=== PATIENT | female | born 1970 | race Caucasian/White ===

== ENCOUNTER 2017-10-12 18:46 | Inpatient (IN) | payer BC, OTHER ==
[~2017-10-12] VITALS: Ht 147.3 cm; Wt 88.5 kg
[~2017-10-12 18:46] MED LIST: BACLOFEN10 MG PO; CYMBALTA30 M1 PO; MEDROL4 MG PO; MOT800 PO; PEPCID20 MG PO; SYMBICORT1 AE3 INH; TRAMADOL HCL50 MG PO; WELLBUTRIN100 MG PO
[2017-10-12 19:48] LABS: BASOPHIL % 0.1 % (0-2); PLATELET COUNT 212 x10^3mcL (130-400); RED CELL DISTRIBUTION WIDTH 13.4 % (11.5-14.5)
[2017-10-12 20:05] LABS: CALCIUM 8.7 mg/dL (8.5-10.1); CARBON DIOXIDE 23.9 mmol/L (21-32); CREATININE SERUM 1.3 mg/dL (0.6-1.0); POTASSIUM SERUM 3.4 mmol/L (3.5-5.1)
[2017-10-12 20:10] LABS: ALBUMIN 3.8 g/dL (3.4-5.0); BILIRUBIN TOTAL 0.3 mg/dL (0.20-1.00); TOTAL PROTEIN, SERUM 7.3 g/dL (6.4-8.2)
[2017-10-12 21:10] VITALS: BP 118/53
[2017-10-12 21:17] LABS: CHOLESTEROL/HDL RATIO 3.9; MAGNESIUM 2.1 mg/dL (1.8-2.4); PHOSPHOROUS 2.5 mg/dL (2.5-4.9)
[2017-10-12] MEDS ORDERED: CYMBALTA30 M1 PO (21:22)
[2017-10-12 21:23] LABS: T3 TOTAL 0.95 ng/mL
[2017-10-12] MEDS ORDERED: NEU300 PO (21:24)
[2017-10-12 21:25] LABS: FREE T4 1.07 ng/dL (0.76-1.46); FREE THYROXINE INDEX 2.3 ug/dL (1.4-4.5)
[2017-10-12 22:13] VITALS: BP 102/54
[2017-10-13 03:52] LABS: microscopic required? NO
[2017-10-13 03:59] LABS: urine erythrocyte NEGATIVE (NEGATIVE)
[2017-10-13 04:18] LABS: AMPHETAMINE QUAL UR NONE DETECTED (NEG <=1000)
[2017-10-13 05:21] VITALS: BP 103/57
[2017-10-13 06:52] LABS: CALCIUM 8.2 mg/dL (8.5-10.1); CREATININE SERUM 1.1 mg/dL (0.6-1.0); MAGNESIUM 2.4 mg/dL (1.8-2.4); PHOSPHOROUS 2.3 mg/dL (2.5-4.9); POTASSIUM SERUM 4.4 mmol/L (3.5-5.1)
[2017-10-13 06:53] LABS: PLATELET COUNT 224 x10^3mcL (130-400); RED CELL DISTRIBUTION WIDTH 13.4 % (11.5-14.5)
[2017-10-13 08:01] LABS: BASOPHIL % 0 % (0-2)
[2017-10-13 16:59] VITALS: BP 111/66
[2017-10-13 21:42] VITALS: BP 105/62
[2017-10-14 05:24] VITALS: BP 128/63
[2017-10-14 06:56] LABS: CALCIUM 8.6 mg/dL (8.5-10.1); CARBON DIOXIDE 21.8 mmol/L (21-32); CHLORIDE SERUM 109 mmol/L (98-107); CREATININE SERUM 0.8 mg/dL (0.6-1.0); GFR1 > 60 mL/min; GLUCOSE SERUM 156 mg/dL (74-106); MAGNESIUM 2.5 mg/dL (1.8-2.4); POTASSIUM SERUM 4.1 mmol/L (3.5-5.1); SODIUM SERUM 142 mmol/L (136-145)
[2017-10-14 07:00] LABS: PLATELET COUNT 244 x10^3mcL (130-400); RED CELL DISTRIBUTION WIDTH 13.7 % (11.5-14.5)
[2017-10-14 07:05] LABS: BASOPHIL % 0 % (0-2)
[2017-10-14 10:24] VITALS: BP 110/62
[2017-10-14 14:44] VITALS: BP 121/64
[2017-10-14 17:02] VITALS: BP 123/71
[2017-10-14 22:55] VITALS: BP 102/63; BP 126/65
[2017-10-15] VITALS (7 sets, daily range): BP systolic 126–144; BP diastolic 64–86
[2017-10-15 06:46] LABS: PLATELET COUNT 250 x10^3mcL (130-400); RED CELL DISTRIBUTION WIDTH 13.8 % (11.5-14.5)
[2017-10-15 06:59] LABS: BASOPHIL % 0 % (0-2)
[2017-10-15 08:02] LABS: CALCIUM 8.6 mg/dL (8.5-10.1); CARBON DIOXIDE 25.6 mmol/L (21-32); CHLORIDE SERUM 106 mmol/L (98-107); CREATININE SERUM 0.8 mg/dL (0.6-1.0); GFR1 > 60 mL/min; GLUCOSE SERUM 130 mg/dL (74-106); MAGNESIUM 2.5 mg/dL (1.8-2.4); PHOSPHOROUS 2.9 mg/dL (2.5-4.9); POTASSIUM SERUM 4.6 mmol/L (3.5-5.1); SODIUM SERUM 142 mmol/L (136-145)
[2017-10-15] MEDS ORDERED: MEDDP PO (10:46)
[2017-10-15] MEDS ORDERED: MONTELUKAST SOD10 M1 PO (10:47)
[2017-10-15] MEDS ORDERED: SYMBICORT1 AE3 INH (10:50)
[2017-10-15] MEDS ORDERED: LIPI10 PO (10:53)
[2017-10-15] MEDS ORDERED: ROBL PO (10:54)
[2017-10-15] MEDS ORDERED: IPRATROPIUM BROM3 M2 HHN (11:56)
[2017-10-15] MEDS ORDERED: PREDNISONE2.5 MG PO (16:28)
[2017-10-16 05:48] VITALS: BP 125/73
[2017-10-16 07:00] LABS: BASOPHIL % 0.2 % (0-2); PLATELET COUNT 211 x10^3mcL (130-400); RED CELL DISTRIBUTION WIDTH 13.5 % (11.5-14.5)
[2017-10-16 07:40] LABS: CALCIUM 8.2 mg/dL (8.5-10.1); CARBON DIOXIDE 30.5 mmol/L (21-32); CHLORIDE SERUM 108 mmol/L (98-107); CREATININE SERUM 0.9 mg/dL (0.6-1.0); GFR1 > 60 mL/min; GLUCOSE SERUM 103 mg/dL (74-106); MAGNESIUM 2.3 mg/dL (1.8-2.4); PHOSPHOROUS 3.6 mg/dL (2.5-4.9); POTASSIUM SERUM 4.2 mmol/L (3.5-5.1); SODIUM SERUM 146 mmol/L (136-145)
[2017-10-16 09:21] VITALS: BP 135/83
[2017-10-16 13:16] VITALS: Ht 147.3 cm; Wt 88.5 kg
[2017-10-16 13:46] VITALS: BP 127/77
== END 2017-10-16 15:35 | disposition home or self-care (01) | DRG 196 ==
LOC: ED 18:46 → DU 20:42
PROVIDERS: Emergency Medicine; Family Medicine
DX: J84.9 Interstitial pulmonary disease, unspecified (principal); J96.00 Acute respiratory failure, unspecified whether with hypoxia or hypercapnia; Z68.41 Body mass index [BMI] 40.0-44.9, adult; J45.901 Unspecified asthma with (acute) exacerbation; M94.0 Chondrocostal junction syndrome [Tietze]; K21.9 Gastro-esophageal reflux disease without esophagitis; E87.6 Hypokalemia; E66.01 Morbid (severe) obesity due to excess calories; M79.7 Fibromyalgia; E83.39 Other disorders of phosphorus metabolism; E78.5 Hyperlipidemia, unspecified; Z82.49 Family history of ischemic heart disease and other diseases of the circulatory system; Z57.8 Occupational exposure to other risk factors; Z98.891 History of uterine scar from previous surgery; Z90.710 Acquired absence of both cervix and uterus
CPT/HCPCS: 83880; 84439; 85378; J1644; J1885; J2920; J2930; J3475; J7030; J7613; J7620; J7626; J7633; J7644; Q0092

== ENCOUNTER 2017-11-05 19:54 | Observation (INO) | payer BC, OTHER ==
[~2017-11-05] VITALS: Ht 147.3 cm; Wt 107.7 kg
[~2017-11-05 19:54] MED LIST changes: +IPRATROPIUM BROM3 M2 HHN; +LIPI10 PO; +MEDDP PO; +MONTELUKAST SOD10 M1 PO; +NEU300 PO; +PREDNISONE2.5 MG PO; +ROBL PO
[2017-11-05 20:03] VITALS: Ht 147.3 cm; Wt 107.7 kg
[2017-11-06 00:33] LABS: BASOPHIL % 0.6 % (0-2); PLATELET COUNT 292 x10^3mcL (130-400); RED CELL DISTRIBUTION WIDTH 14.5 % (11.5-14.5)
[2017-11-06 00:40] VITALS: BP 116/63
[2017-11-06 00:46] LABS: CALCIUM 8.5 mg/dL (8.5-10.1); CARBON DIOXIDE 27.3 mmol/L (21-32); CHLORIDE SERUM 106 mmol/L (98-107); CREATININE SERUM 0.8 mg/dL (0.6-1.0); GFR1 > 60 mL/min; GLUCOSE SERUM 154 mg/dL (74-106); POTASSIUM SERUM 3.2 mmol/L (3.5-5.1); SODIUM SERUM 143 mmol/L (136-145)
[2017-11-06 01:14] LABS: CHOLESTEROL/HDL RATIO 3.1; PHOSPHOROUS 3.1 mg/dL (2.5-4.9)
[2017-11-06 01:43] LABS: T3 TOTAL 0.84 ng/mL
[2017-11-06 02:03] LABS: FREE T4 1.06 ng/dL (0.76-1.46); FREE THYROXINE INDEX 2.5 ug/dL (1.4-4.5); T4(THYROXINE) 6.8 ug/dL (4.7-13.3)
[2017-11-06] MEDS ORDERED: BACLOFEN10 MG PO (02:10)
[2017-11-06 02:28] LABS: microscopic required? NO
[2017-11-06] MEDS ORDERED: HYDROCHLOROTH12.5 M2 PO (02:48)
[2017-11-06 02:52] LABS: urine erythrocyte NEGATIVE (NEGATIVE)
[2017-11-06 03:08] LABS: AMPHETAMINE QUAL UR NONE DETECTED (NEG <=1000)
[2017-11-06 06:06] VITALS: BP 93/63
[2017-11-06 10:31] VITALS: BP 100/61
[2017-11-06 13:35] VITALS: BP 120/74
[2017-11-06 15:43] VITALS: BP 120/74
== END 2017-11-06 17:50 | disposition home or self-care (01) | DRG 202 ==
LOC: ED 19:54 → DU 23:34
PROVIDERS: Family Medicine
DX: J45.901 Unspecified asthma with (acute) exacerbation (principal); E44.0 Moderate protein-calorie malnutrition; Z68.41 Body mass index [BMI] 40.0-44.9, adult; R06.03 Acute respiratory distress; M94.0 Chondrocostal junction syndrome [Tietze]; E87.6 Hypokalemia; E78.1 Pure hyperglyceridemia; M79.7 Fibromyalgia; E66.01 Morbid (severe) obesity due to excess calories
CPT/HCPCS: 36600; 83880; 84439; G0378; J1644; J2920; J2930; J7030; J7512; J7613; J7620; J7644; Q0092

== ENCOUNTER 2019-03-15 18:54 | Inpatient (IN) | payer BC ==
[~2019-03-15] VITALS: Ht 152.4 cm; Wt 112.2 kg
[~2019-03-15 18:54] MED LIST changes: +HYDROCHLOROTH12.5 M2 PO
[2019-03-15 18:56] VITALS: Ht 152.4 cm; Wt 112.2 kg
--- NOTE | 2019-03-15 19:04 | NUR ---
PER DR. GIL, RUN MG 2 GM OVER 30 MINUTES
--- NOTE | 2019-03-15 19:14 | NUR ---
PATIENT [facility] COMING FROM [facility]. PER MEDICS, PATIENT WAS HAVING SOB SINCE 1200, WENT FROM WORK TO URGENT CARE. PER MEDICS, PATIENT WAS GIVEN SOME SOLU MEDROL, ALBUTEROL, AND ATROVENT TO NO RELIEF. BIBA WITH CIPAP AND IN RESP DISTRESS. PATIENT NOW ABLE TO SPEAK IN FULL SENTENCES, STS SHE IS STILL HAVING TROUBLE BREATHING. RT AT BEDSIDE. EXPIRATORY WHEEZING NOTED BILATERALLY. PATIENT IS UTILIZING ACCESSORY MUSCLES ON BREATHING WITH BILATERAL CHEST RISE NOTED. DR. GIL AT BEDSIDE FOR ORDERS.
--- NOTE | 2019-03-15 19:15 | NUR ---
MAG SLOWED DOWN TO 80ML/HR PER MD GIL
--- NOTE | 2019-03-15 19:21 | NUR ---
MD GIL MADE AWARE PT STARTED TO COMPLAIN OF CHEST PAIN. NO NEW ORDERS AT THIS TIME
--- NOTE | 2019-03-15 19:25 | NUR ---
PT STATES PAIN IN HER CHEST AND BACK THAT IS AN 8/10. MD GIL MADE AWARE. NO NEW ORDERS AT THIS TIME
--- NOTE | 2019-03-15 19:25 | NUR ---
REPORT GIVEN TO KEYLA KO
[2019-03-15 19:26] LABS: BASOPHIL % 0.2 % (0-2); RED CELL DISTRIBUTION WIDTH 13.7 % (11.5-14.5)
--- NOTE | 2019-03-15 19:26 | NUR ---
REPORT RECEIVED FROM Kimberlee FERNÁNDEZ RN
[2019-03-15 19:27] LABS: PLATELET COUNT 465 x10^3mcL (130-400)
[2019-03-15 19:37] LABS: CALCIUM 8.6 mg/dL (8.5-10.1); CARBON DIOXIDE 18.7 mmol/L (21-32); CREATININE SERUM 1.2 mg/dL (0.6-1.0); POTASSIUM SERUM 3.3 mmol/L (3.5-5.1)
--- NOTE | 2019-03-15 19:40 | NUR ---
ATTEMPTING TO REMOVE BIPAP TO SEE HOW PT TOLERATES IT. ONCE TAKEN OFF BY RT PT STATES SHE "STILL FEELS REALLY TIGHT". PT HAS ACCESSSORY MUCLE USE AND RETRACTIONS WITH MASK REMOVED. PT 02 SATURATION STILL AT 98% WITH MASK REMOVED. AUDIBLE WHEEZING HEARD WITHOUT STETHOSCOPE UPON EXPIRATION. MD GIL MADE AWARE. NEW ORDERS FOR SECOND BREATHING TX. RT AT BEDSIDE TO FULLFILL THOSE ORDERS.
[2019-03-15 19:44] LABS: BILIRUBIN TOTAL 0.3 mg/dL (0.20-1.00); CHOLESTEROL/HDL RATIO 4.3; TOTAL PROTEIN, SERUM 7.5 g/dL (6.4-8.2)
--- NOTE | 2019-03-15 19:49 | NUR ---
PT SPEAKING IN SHORT 2 TO 3 WORD SENTENCES. PT STATES THAT IT WAS EASIER TO BREATHE ON THE MACHINE. RT IRENE AT BEDSIDE TO PLACE PT BACK ON BIPAP
[2019-03-15 19:54] LABS: FREE T4 0.98 ng/dL (0.76-1.46); FREE THYROXINE INDEX 2.4 ug/dL (1.4-4.5); T4(THYROXINE) 7.2 ug/dL (4.7-13.3)
[2019-03-15 20:11] LABS: T3 TOTAL 0.83 ng/mL
--- NOTE | 2019-03-15 20:13 | NUR ---
MD GIL MADE AWARE PT MEETS SEPSIS CRITERIA. DOES NOT WANT TO GIVE ABX AT THIS TIME. PT RECIEVED 1L NS BOLUS ALREADY
--- NOTE | 2019-03-15 20:45 | NUR ---
MOM AT BEDSIDE
--- NOTE | 2019-03-15 20:49 | NUR ---
PER URGENT CARE DOCUMENTATION THAT PT CONFIRMS IS CORRECT PT HAS HX OF FIBROMYALGIA GERD MIGRAINE CHRONIC LARYNGITIS DEPRESSION PERSISTENT EXTRINISIC ASTHMA OBESITY HX OF HYSTERECTOMY FOR BENIGN DISEASE HYPERLIPIDEMIA SEVERE PERSISTENT ASTHMA WITH ACUTE EXACERBATION
[2019-03-15] MEDS ORDERED: SINGULAIR10 MG PO (20:59)
[2019-03-15] MEDS ORDERED: VENTOLIN H0.09 MG/A1 IH (20:59)
[2019-03-15] MEDS ORDERED: NEURONTIN300 MG PO (21:00)
--- NOTE | 2019-03-15 21:17 | NUR ---
SON AT BEDSIDE
--- NOTE | 2019-03-15 21:17 | NUR ---
RT AT BEDSIDE TO SEE IF PT CAN TOLERATE BEING OFF BIPAP NOW THAT SHE STATES THAT SHE IS FEELING BETTER AND WOULD LIKE TO TRY TO REMOVE IT
--- NOTE | 2019-03-15 21:37 | NUR ---
PT BREATHS EASIER WITH BIPAP. PT REMAINS ON BIPAP. RT AT BEDSIDE FOR ABG
--- NOTE | 2019-03-15 21:38 | NUR ---
PT STATES HEAD PAIN DECREASED DOWN TO A 4/10 WITH MEDICATION PER EMAR
--- NOTE | 2019-03-15 21:44 | NUR ---
PER BACKPACKERS MANAGERKEYLA Gonsalves WAIT ANOTHER HOUR BEFORE FOLLOWING THROUGH WITH ADMISSION ORDERS AND MEDICATIONS
--- NOTE | 2019-03-15 21:59 | NUR ---
PT PROVIDED WITH WATER PER REQUEST
[2019-03-15 22:07] LABS: microscopic required? NO
[2019-03-15 22:12] LABS: UA SPECIFIC GRAVITY 1.025 (1.005-1.035); urine erythrocyte NEGATIVE (NEGATIVE)
--- NOTE | 2019-03-15 22:29 | NUR ---
RESPIORATORY CALLED FOR BREATHING TX FOR BED 1 ADMISSION ORDERS
--- NOTE | 2019-03-15 22:33 | NUR ---
RT AT BEDSIDE FOR BREATHING TX
--- NOTE | 2019-03-15 23:08 | NUR ---
report given to christa burton
[2019-03-15 23:35] VITALS: BP 132/84
--- NOTE | 2019-03-15 23:39 | NUR ---
RECEIVED PT FROM ED VIA ZACHERY. ORIENTED PT TO ROOM AND SURROUNDINGS. IV NOTED TO LAC PATENT AND INTACT. TELE 8 PLACED ON PT READING STA. INSTRUCTED PT ON THE USE OF CALL LIGHT FOR ASSISTANCE. ENDORSE PT TO PRIMARY NURSE COLBY
--- NOTE | 2019-03-15 23:45 | NUR ---
RECEIVED PT FROM RESOURCE RN, SURU. PT BREATHING ON BIPAP IPAP 12; EPAP 6; RATE 16; FIO2 28% BREATHING EVEN AND UNLABORED, O2 SAT 99% PT C/O EXTREME SOB WITH EXERTION. COMFORT AND SAFETY MEASURES IMPLEMENTED. ORIENTED PT TO ROOM AND CALL LIGHT. CALL LIGHT WITHIN REACH. WILL CONTINUE TO MONITOR
[2019-03-16 01:05] VITALS: BP 132/84
--- NOTE | 2019-03-16 01:34 | NUR ---
SPOKE WITH TARUN MACHUCA TO INPUT ORDERS FOR BIPAP AT NIGHT AND PRN.
[2019-03-16 05:21] VITALS: BP 101/56
--- NOTE | 2019-03-16 06:24 | NUR ---
PT REMAINS ON BIPAP AT THIS TIME, DENIES ANY PAIN OR DISCOMFORT. BREATHING EVEN AND UNLABORED. NO SIGNIFICANT CHANGES TO REPORT, PT COMPLIED WITH NURSING CARE THROUGHOUT THE SHIFT WITH NO ACUTE EVENTS OVERNIGHT. COMFORT AND SAFETY MEASURES MAINTAINED, ALL NEEDS ASSESSED AND ATTENED TO. CALL LIGHT WITHIN REACH. WILL CONTINUE TO MONITOR AND ENDORSE CARE TO DAY SHIFT NURSE
[2019-03-16 06:43] LABS: CALCIUM 8.7 mg/dL (8.5-10.1); CARBON DIOXIDE 18.2 mmol/L (21-32); CHLORIDE SERUM 109 mmol/L (98-107); GFR1 > 60 mL/min; GLUCOSE SERUM 185 mg/dL (74-106); MAGNESIUM 2.4 mg/dL (1.8-2.4); POTASSIUM SERUM 3.9 mmol/L (3.5-5.1); SODIUM SERUM 144 mmol/L (136-145)
[2019-03-16 06:54] LABS: PLATELET COUNT 291 x10^3mcL (130-400); RED CELL DISTRIBUTION WIDTH 13.9 % (11.5-14.5)
--- NOTE | 2019-03-16 07:00 | NUR ---
RECIEVED BEDSIDE REPORT FROM DISHCLOTH FOLDER NURSE. PATIENT IS RESTING COMFORTABLY IN BED. NO APPARENT SIGNS OF PAIN. PATIENT ON BIPAP. RESPIRATIONS EVEN, NOT LABORED. PATIENT DENIES SOB, NO APPARENT SIGN OF RESPIRATORY DISTRESS NOTED. IV TO RIGHT ARM INFUSING WELL, NO EDEMA OR ERYTHEMA NOTED TO SITE. CALL LIGHT WITHIN REACH. BED IN LOW POSITION, BED RAILS UP X2. SAFETY PRECAUTIONS IN PLACE.
[2019-03-16 07:17] LABS: BASOPHIL % 0 % (0-2)
--- NOTE | 2019-03-16 07:37 | NUR ---
PHYSICAL ASSESSMENT COMPLETED. PLEASE SEE PROBLEM FOCUSED CARE FOR DETAILS.
--- NOTE | 2019-03-16 07:52 | NUR ---
RT REMOVED BIPAP SO PATIENT CAN EAT BREAKFAST. PATIENT DENIES SOB, OR RESPIRAOTRY DISTRESS. ON 2L NC.
[2019-03-16 09:05] VITALS: BP 129/71
--- NOTE | 2019-03-16 09:15 | NUR ---
ADMINISTERED MEDCATIONS PER EMAR. PATIENT EDUCATED ON NEED FOR MEDICATION, AND ADVERSE EFFECTS TO REPORT. PATIENT VERBALIZED UNDERSTANDING. PATTERN GRADER SUPERVISOR TOLORATED WELL. PATIENT DENIES OTHER NEEDS AT THIS TIME. CALL LIGHT WITHIN REACH. BED IN LOW POSITION. SAFETY PRECAUTIONS IN PLACE.
--- NOTE | 2019-03-16 10:21 | NUR ---
PATIENT IS STABLE NO APPARENT SIGNS OF PAIN OR RESPIRATORY DISTRESS. PATIENT DENIES SOB, DIZZINESS, OR HEADACHE. IV IS PATENT NO EDEMA OR ERYTHEMA NOTED TO SITE. PATIENT DENIES OTHER NEEDS AT THIS TIME. CALL LIGHT WITHIN REACH. SAFEY PRECAUTIONS IN PLACE.
--- NOTE | 2019-03-16 11:43 | NUR ---
ADMINISTERED MEDCATIONS PER EMAR. PATIENT EDUCATED ON NEED FOR MEDICATION, AND ADVERSE EFFECTS TO REPORT. PATIENT VERBALIZED UNDERSTANDING. ENGRAVER LETTERING TOLORATED WELL. PATIENT DENIES OTHER NEEDS AT THIS TIME. CALL LIGHT WITHIN REACH. BED IN LOW POSITION. SAFETY PRECAUTIONS IN PLACE.
--- NOTE | 2019-03-16 12:13 | NUR ---
ADMINISTERED MEDCATIONS PER EMAR. PATIENT EDUCATED ON NEED FOR MEDICATION, AND ADVERSE EFFECTS TO REPORT. PATIENT VERBALIZED UNDERSTANDING. SUPERVISOR HEADING TOLORATED WELL. PATIENT DENIES OTHER NEEDS AT THIS TIME. CALL LIGHT WITHIN REACH. BED IN LOW POSITION. SAFETY PRECAUTIONS IN PLACE.
[2019-03-16 12:32] VITALS: BP 102/56
--- NOTE | 2019-03-16 13:25 | NUR ---
IV TO RIGHT AC INFILTRATED. IV REMOVED. PATIENT TOLORATED WELL. QUESTIONS AND CONCERNS ADDRESSED. PATIENT DENIES OTHER NEEDS AT THIS TIME. IV TO LEFT FOREARM IS FLUSHING WELL. NO EDEMA OR ERYTHEMA NOTED TO SITE.
--- NOTE | 2019-03-16 14:24 | NUR ---
PATIENT IS STABLE, NO APPARENT SIGNS OF RESPIRATORY DISTRESS. PATIENT DENIES SOB, AND PAIN. FAMILY AT BEDSIDE. QUESTIONS AND CONCERNS ADDRESSED. PATIENT DENIES OTHER NEEDS AT THIS TIME. SAFETY PRECAUTIONS IN PLACE.
--- NOTE | 2019-03-16 16:31 | NUR ---
MD ANN IS AT BEDSIDE EXPLAINING THE CARE PLAN WITH THE PATIENT, NURSE, AND RT. PATIENT UNDERSTANDS THE TREATMENT PLAN, AND IS COMFORTABLE WITH THE TREATMENT PLAN. SAFETY PRECAUTIONS IN PLACE. RT AT BEDSIDE GIVING BREATHING TREATMENT.
--- NOTE | 2019-03-16 16:49 | NUR ---
ADMINISTERED MEDCATIONS PER EMAR. PATIENT EDUCATED ON NEED FOR MEDICATION, AND ADVERSE EFFECTS TO REPORT. PATIENT VERBALIZED UNDERSTANDING. DECK MOLDER TOLORATED WELL. PATIENT DENIES OTHER NEEDS AT THIS TIME. CALL LIGHT WITHIN REACH. BED IN LOW POSITION. SAFETY PRECAUTIONS IN PLACE.
--- NOTE | 2019-03-16 17:15 | NUR ---
ADMINISTERED MEDCATIONS PER EMAR. PATIENT EDUCATED ON NEED FOR MEDICATION, AND ADVERSE EFFECTS TO REPORT. PATIENT VERBALIZED UNDERSTANDING. KINDERGARTEN TUTOR TOLORATED WELL. PATIENT DENIES OTHER NEEDS AT THIS TIME. CALL LIGHT WITHIN REACH. BED IN LOW POSITION. SAFETY PRECAUTIONS IN PLACE.
[2019-03-16 17:53] VITALS: BP 134/70
--- NOTE | 2019-03-16 17:56 | NUR ---
RT AT BEDSIDE TO EDUCATE ON INCENTIVE SPIROMETER USE.
--- NOTE | 2019-03-16 18:04 | NUR ---
PATIENT IS STABLE, NO APPARENT SIGNS OF PAIN. PATINET DENIES SOB, OR RESPIRATORY DISTRESS. ON 2L NC. IV TO LEFT FOREARM IS SALINE LOCKED. NO EDEMA OR ERYTHEMA NOTED TO SITE. PATIENT IS RESTING COMFORTABLY IN BED. FAMILY AT BEDSIDE. CALL LIGHT AND PHONE WITHIN REACH. BED IN LOW POSITION. BED RAILS UP X2. QUESTIONS AND CONCERNS ADDRESSED. SAFETY PRECAUTIONS IN PLACE. WILL ENDORSE CARE TO CABINET ABRASIVE SANDBLASTER NURSE.
--- NOTE | 2019-03-16 19:30 | NUR ---
RECEIVED PT RESTING IN BED, NO ACUTE DIISTRESS NOTED. PT AOX4, REPORTS SLIGHT BOWMAN, WILL MEDICATE PER ORDER. DENIES DIZZINESS. TELE # 8, ST 117, DENIES CP. PULSES PALPABLE BILAT, DENIES NUMBNESS/TINGLING IN FEET. PT WITH TRACE TO 1+ PITTING EDEMA (R>L). PT ON HEP SQ. RESP EVEN AND SHALLOW, WITH AUDIBLE EXPIRATORY WHEEZE NOTED IN THE UPPER RESP TRACT. PT REPORTS MINIMAL SOB, WILL PAGE RT FOR BREATHING TX. LUNG SOUNDS CTA UPPER LOBES, DIM BILAT BASES ON 2LNC. ABD SOFT, ROUND, DENIES ABD PAIN/N/V/D. VOIDS FREELY /O DYSURIA. AMBULATORY. REPORTS DIZZINESS WITH AMBULATION. EDUCATED PT THE USE OF CALL LIGHT FOR SAFETY DURING THE EVENING. PT VERBALIZES UNDERSTANDING. SKIN INTACT. IV SITE TO THE LFA PATENT, SALINE LOCKED AT THIS TIME. ALL COMFORT AND SAFETY MEASURES PROVIDED FOR, CALL LIGHT WITHIN REACH, BED IN LOWEST POSITION, WILL CONTINUE TO MONITOR.
--- NOTE | 2019-03-16 20:47 | NUR ---
SPOKE TO RT IN REGARDS TO PT HAVING UPPER RESP TRACT WHEEZING. WILL PAGED [facility] ABOUT OBTAINING AN ORDER FOR RACEMIC EPINEPHRINE NEB. CURRENTLY ON HOLD, WILL WAIT FOR COVERING FOR DR. ANN.
[2019-03-16 20:53] VITALS: BP 103/64
--- NOTE | 2019-03-17 05:10 | NUR ---
PT RESTED IN INTERVALS DURING SHIFT, REPORTS THE BIPAP AT NIGHT WORKED WELL. PT TOLERATING ANTIBIOTICS WELL. ALL COMFORT AND SAFETY MEASURES PROVIDED FOR, CALL LIGH WITHIN REACH, BED IN LOWEST POSITION, WILL CONTINUE TO MONITOR.
[2019-03-17 05:17] VITALS: BP 113/54
[2019-03-17 06:35] LABS: CALCIUM 8.7 mg/dL (8.5-10.1); CARBON DIOXIDE 24.9 mmol/L (21-32); CHLORIDE SERUM 111 mmol/L (98-107); CREATININE SERUM 0.8 mg/dL (0.6-1.0); GFR1 > 60 mL/min; GLUCOSE SERUM 187 mg/dL (74-106); MAGNESIUM 2.3 mg/dL (1.8-2.4); POTASSIUM SERUM 3.9 mmol/L (3.5-5.1); SODIUM SERUM 146 mmol/L (136-145)
--- NOTE | 2019-03-17 06:40 | NUR ---
PT IV INFILTRATED. INSERTED NEW IV TO RT WRIST. PT TOLERATED WELL. NO REDNESS, SWELLING OR PAIN NOTED.
[2019-03-17 06:42] LABS: PLATELET COUNT 270 x10^3mcL (130-400)
[2019-03-17 07:32] LABS: BASOPHIL % 0 % (0-2); RED CELL DISTRIBUTION WIDTH 14.6 % (11.5-14.5)
--- NOTE | 2019-03-17 08:00 | NUR ---
RECEIVED PATIENT A/A/OX4; TELE#8; ST; HR = 112. DENIED CHEST PAIN. NON-PRODUCTIVE COUGH. NO SOB. BREATHING SOUND DIMINISHED GERMAINE. NO WHEEZING SOUND NOW. O2 SAT 96% ON RA. AMBULATORY. TOLERATED REGULAR DIET BREAKFAST. IVHL'D TO R WRIST. DENIED PAIN. CALL LIGHT IN REACH.
[2019-03-17 09:16] VITALS: BP 117/72
[2019-03-17 13:15] VITALS: BP 107/59
--- NOTE | 2019-03-17 15:25 | NUR ---
DR. ANN CAME TO SEE PATIENT. AWARE OF PATIENT'S WBC 12.8 TODAY. NEW ORDER WRITTEN.
--- NOTE | 2019-03-17 17:02 | NUR ---
C/O HEADACHE 04/16; TYLENOL 650MG PO GIVEN. CONTINUE MONITOR.
[2019-03-17 17:52] VITALS: BP 120/67
--- NOTE | 2019-03-17 18:00 | NUR ---
STATED HEADACHE WENT DOWN TO 4/10; FINISHED 100% OF REGULAR DINNER. VOID X2 AND BM X1, SMALL, VIA BRP. ENDORSED CARE TO NOC NURSE.
--- NOTE | 2019-03-17 19:00 | NUR ---
RECEIVED PT FROM DAY SHIFT RN. PT ALERT AND ORIENTED TO PERSON PLACE TIME AND SITUATION. SHE IS CURRENTLY RESTING IN BED WITH FAMILY AT THE BEDSIDED. PT DENIES SHORTNESS OF BREATH AT THIS TIME ON ROOM AIR. THERE ARE NO USE OF ACCESSORY MUSCLES OR LABORED BREATHING ON ASSESSMENT. LUNG SOUNDS ARE DIMINISHED TO THE BILATERAL BASES OF THE LUNGS. INSTRUCTED PT TO CALL IF SHE IS FEELING IN INCREASE IN SHORTNESS OF BREATH. TELE MONITOR #[address] PT IS AMBULATORY INDEPENDENTLY. THERE IS A RIGHT WRIST IV 22G THAT IS CLEAN DRY AND INTACT AT THIS TIME. SAFETY MEASURES ARE IN PLACE. CALL LIGHT IS WITHIN REACH. BED IS IN THE LOWEST POSITION. WILL CONTINUE TO MONITOR.
[2019-03-17 20:49] VITALS: BP 119/62
--- NOTE | 2019-03-17 22:42 | NUR ---
PT IV INFILTRATED 22G INSERTED INTO LEFT WRIST. PT TOLERATED WELL
--- NOTE | 2019-03-18 01:00 | NUR ---
PT IS ON BIPAP. TOLERATING WELL. NO SIGNS OR SYMPTOMS OF CHEST PAIN OR SHORTNESS OF BREATH. BREATHING IS EVEN AND UNLABORED.
--- NOTE | 2019-03-18 02:55 | NUR ---
PT RESTING IN BED WITH EYES CLOSED. BIPAP MACHINE TOLERATING WELL. NO FACIAL GRIMMACING OR DISTRESS NOTED. BREATHING IS EVEN AND UNLABORED.
[2019-03-18 05:48] VITALS: BP 117/60
--- NOTE | 2019-03-18 06:00 | NUR ---
PT RESTING IN BED AT THIS TIME. NO USE OF ACCESSORY MUSCLES OR LABORED BREATHING. NO DISTRESS NOTED AT THIS TIME. NO CHANGES NOTED THROUGHOUT THE NIGHT. WILL ENDORSE CONTINUITY OF CARE TO THE DAY SHIFT RN.
--- NOTE | 2019-03-18 07:00 | NUR ---
RECEIVED HAND OFF REPORT FROM [facility] NURSE. PATIENT AWAKE, SITTING UP IN BED WITH BIPAP IN PLACE. PATIENT REQUESTED BIPAP TO BE REMOVED. PATIENT TOLERATING ROOM AIR WELL. TELE #[address] PATIENT COMPLAINING OF HEADACHE AT THIS TIME. WILL MEDICATED WITH TYLENOL PER NOV. CALL LIGHT EMIL REACH
[2019-03-18 07:14] LABS: BASOPHIL % 0.1 % (0-2); PLATELET COUNT 272 x10^3mcL (130-400); RED CELL DISTRIBUTION WIDTH 14.2 % (11.5-14.5)
--- NOTE | 2019-03-18 07:35 | NUR ---
TYLENOL PRN ADMINSITERED. PATIENT HAD NO OTHER COMPLAINTS. BREAKFAST TRAY NOW AT BEDSIDE. CALL LIGHT WITHIN REACH
[2019-03-18 07:44] LABS: CARBON DIOXIDE 23.5 mmol/L (21-32); CHLORIDE SERUM 111 mmol/L (98-107); CREATININE SERUM 0.8 mg/dL (0.6-1.0); GFR1 > 60 mL/min; GLUCOSE SERUM 153 mg/dL (74-106); MAGNESIUM 2.4 mg/dL (1.8-2.4); POTASSIUM SERUM 4.7 mmol/L (3.5-5.1); SODIUM SERUM 142 mmol/L (136-145)
[2019-03-18 07:48] VITALS: BP 117/61
--- NOTE | 2019-03-18 09:22 | NUR ---
ADMINISTERED MEDICATION PER MAR, PATIENT RESTING COMFORTABLY. NO COMPLAINTS AT THIS TIME. CALL LIGHT WITHIN REACH
[2019-03-18 11:45] VITALS: BP 112/70
--- NOTE | 2019-03-18 12:12 | NUR ---
PATIENT RESTING COMFORTABLY AT THIS TIME. NO COMPLAINTS. PATIENT ASKED TO BE DISCONECTED FROM IV TUBING TO BE ABLE TO AMBULATE TO RESTROOM EASIER. CALL LIGHT WITHIN REACH
--- NOTE | 2019-03-18 13:02 | NUR ---
ADMINISTERED MEDICATION PER MAR. PATIENT SITTING UP IN BED WITH NO COMPLAINTS. FAMILY MEMBER AT BEDSIDE. PATIENT HAD FINISHED MEAL TRAY. CALL LIGHT WITHIN REACH
[2019-03-18] MEDS ORDERED: DOXYCYCLINE MO100 MG PO (13:49)
[2019-03-18 15:56] VITALS: BP 143/88
--- NOTE | 2019-03-18 16:34 | NUR ---
TELE MONITOR REPORTED PATIENT HEART RATE 140, PATIENT FOUIND TO BE UP OUT OF BED AMBULATING WITH FAMILY MEMBERS.
--- NOTE | 2019-03-18 17:06 | NUR ---
ADMINISTERED MEDICATION PER NOV. PATIENT REPORTED COUGH REQUESTED PRN MEDICATION FOR COUGH. FAMILY AT BEDSIDE, ANSWERED QUESTIONS ABOUT PLAN OF CARE AND DISCHARGE. CALL LIGHT WITHIN REACH
--- NOTE | 2019-03-18 18:13 | NUR ---
PATIENT SEEN UP IN HALLWAY AMBULATING WITH FAMILY.
--- NOTE | 2019-03-18 19:40 | NUR ---
PT RECIEVED SITTING IN THE CHAIR IN THE ROOM AAO REG RESP NO SOB IN R/A SAT 97% PT WITH DRY COUGH,ABDO IS SOFT WITH ACTIVE BOWEL SOUNDS,PT HAS HL TO THE LT WRIST WITH THE SITE PATENT AND INTACT,KEPT CLEAN AND DRY TO TOUCH,BED IN THE LOW POSITION AND LOCKED,KEPT CLEAN AND DRY TO TOUCH,WILL CONTINUE TO MONITOR.
[2019-03-18 20:48] VITALS: BP 123/68
[2019-03-19 05:37] VITALS: BP 118/65
--- NOTE | 2019-03-19 06:27 | NUR ---
PT HAD A RESTING NIGHT AT THIS TIME,MADE COMFORTABLE IN BED AND WILL CONTINUE TO MONITOR.
[2019-03-19 06:38] LABS: PLATELET COUNT 261 x10^3mcL (130-400); RED CELL DISTRIBUTION WIDTH 14.4 % (11.5-14.5)
[2019-03-19 06:47] LABS: CALCIUM 9.1 mg/dL (8.5-10.1); CARBON DIOXIDE 24.1 mmol/L (21-32); CHLORIDE SERUM 110 mmol/L (98-107); CREATININE SERUM 0.8 mg/dL (0.6-1.0); GFR1 > 60 mL/min; GLUCOSE SERUM 152 mg/dL (74-106); MAGNESIUM 2.3 mg/dL (1.8-2.4); SODIUM SERUM 144 mmol/L (136-145)
--- NOTE | 2019-03-19 07:08 | NUR ---
HANDOFF REPORT RECEIVED. PATIENT AWAKE IN BED AND DENIES ANY DYSPNEA. WITH DRY COUGH ON AND OFF. INSTRUCTED TO CALL RN FOR ASSIST. CALL OLIVEIRA WITHIN REACH.
[2019-03-19 07:32] LABS: BASOPHIL % 0 % (0-2)
[2019-03-19 07:37] VITALS: BP 146/80
[2019-03-19 09:31] VITALS: BP 146/80
--- NOTE | 2019-03-19 11:28 | NUR ---
DISCHARGE TEACHINGS DONE. STATED UNDERSTANDING. TELEMETRY AND HEP LOCK REMOVED. NOT IN ANY DISTRESS. ESCORTED OFF THE FLOOR BY ALEX PEREYRA.
== END 2019-03-19 11:26 | disposition home or self-care (01) | DRG 189 ==
LOC: ED 18:54 → DU 21:18
PROVIDERS: Specialist; ADMIT Internal Medicine Pulmonary Disease
PROC: 5A09357 Assistance with Respiratory Ventilation, Less than 24 Consecutive Hours, Continuous Positive Airway Pressure (ICD-10-PCS; principal; 2019-03-16)
DX: J96.01 Acute respiratory failure with hypoxia (principal); J45.902 Unspecified asthma with status asthmaticus; E87.6 Hypokalemia; F32.9 Major depressive disorder, single episode, unspecified; F41.9 Anxiety disorder, unspecified; Z90.49 Acquired absence of other specified parts of digestive tract; J20.9 Acute bronchitis, unspecified; R73.9 Hyperglycemia, unspecified
CPT/HCPCS: 36600; 82785; 83880; 84439; 94150; G0378; J0171; J1644; J1885; J2920; J2930; J3475; J3490; J7030; J7040; J7050; J7613; J7620; J7626

== ENCOUNTER 2019-07-16 10:40 | Inpatient (IN) | payer BC ==
[~2019-07-16] VITALS: Ht 152.4 cm; Wt 113.4 kg
[~2019-07-16 10:40] MED LIST changes: +DOXYCYCLINE MO100 MG PO; +NEURONTIN300 MG PO; +SINGULAIR10 MG PO; +VENTOLIN H0.09 MG/A1 IH
[2019-07-16 10:41] VITALS: Ht 152.4 cm; Wt 113.4 kg
[2019-07-16 11:18] LABS: BASOPHIL % 0.2 % (0-2); PLATELET COUNT 295 x10^3mcL (130-400); RED CELL DISTRIBUTION WIDTH 13.8 % (11.5-14.5)
[2019-07-16 11:39] LABS: CALCIUM 8.5 mg/dL (8.5-10.1); CARBON DIOXIDE 28.7 mmol/L (21-32); CHLORIDE SERUM 108 mmol/L (98-107); CREATININE SERUM 0.9 mg/dL (0.6-1.0); GFR1 > 60 mL/min; GLUCOSE SERUM 171 mg/dL (74-106); SODIUM SERUM 144 mmol/L (136-145)
[2019-07-16] MEDS ORDERED: IBUPROFEN400 MG PO (15:01)
[2019-07-16 16:07] VITALS: BP 110/47
[2019-07-16 17:30] VITALS: BP 131/75
[2019-07-16 20:45] VITALS: BP 104/41
[2019-07-17 05:33] VITALS: BP 104/56
[2019-07-17 06:49] LABS: PLATELET COUNT 272 x10^3mcL (130-400); RED CELL DISTRIBUTION WIDTH 14.4 % (11.5-14.5)
[2019-07-17 07:19] LABS: BASOPHIL % 0 % (0-2)
[2019-07-17 07:21] LABS: ALKALINE PHOSPHATASE 87 U/L (46-116); AST/SGOT 15 U/L (15-37); BILIRUBIN TOTAL 0.21 mg/dL (0.20-1.00); CALCIUM 8.1 mg/dL (8.5-10.1); CHLORIDE SERUM 109 mmol/L (98-107); CREATININE SERUM 0.6 mg/dL (0.6-1.0); GFR1 > 60 mL/min; GLUCOSE SERUM 172 mg/dL (74-106); MAGNESIUM 2.3 mg/dL (1.8-2.4); SODIUM SERUM 143 mmol/L (136-145); TOTAL PROTEIN, SERUM 6.2 g/dL (6.4-8.2)
[2019-07-17 07:34] LABS: ALT/SGPT 68 U/L (14-59)
[2019-07-17 07:37] LABS: ALBUMIN 3.1 g/dL (3.4-5.0)
[2019-07-17 07:57] VITALS: BP 94/41
[2019-07-17 10:17] VITALS: BP 134/76
[2019-07-17] MEDS ORDERED: IBUPROFEN400 MG PO (10:32)
[2019-07-17 12:09] VITALS: BP 96/59
== END 2019-07-17 13:36 | disposition home or self-care (01) | DRG 202 ==
LOC: ED 10:40 → DU 15:01
PROVIDERS: Emergency Medicine; ADMIT Internal Medicine Pulmonary Disease
DX: J45.901 Unspecified asthma with (acute) exacerbation (principal); E27.1 Primary adrenocortical insufficiency; J44.9 Chronic obstructive pulmonary disease, unspecified; F32.9 Major depressive disorder, single episode, unspecified; J20.8 Acute bronchitis due to other specified organisms; Z82.49 Family history of ischemic heart disease and other diseases of the circulatory system; Z23 Encounter for immunization
CPT/HCPCS: 90732; G0378; J0456; J1644; J2920; J3475; J7030; J7050; J7620; J7626; J7644; Q0092; Q0169